=== PATIENT | female | born 1940 | race Caucasian/White ===

== ENCOUNTER 2020-05-22 10:52 | Outpatient (CLI) | payer MEDICARE | END 2020-05-22 23:59 | disposition home or self-care (01) | LOC: CFH 10:52 | PROVIDERS: ATTEND Orthopaedic Surgery | DX: S42.331D Displaced oblique fracture of shaft of humerus, right arm, subsequent encounter for fracture with routine healing (principal); X58.XXXD Exposure to other specified factors, subsequent encounter ==

== ENCOUNTER 2020-08-13 08:43 | Emergency (ER) | payer MEDICARE ==
[~2020-08-13] VITALS: Ht 160 cm; Wt 49.0 kg
--- NOTE | 2020-08-13 09:20 | NUR ---
GLF ABOUT 0800 TODAY. PT A&OX4, RESP EVEN & UNLABORED, SPEECH CLEAR. STATES SHE TRIPPED UP A CEMENT STEP AND ROLLED ONTO BACK. HIT HEAD, DENIES LOC. HEMATOMA TO RT LATERAL FOREHEAD, SKIN TEAR RT LAT ELBOW, ABRASION TO RT POSTERIOR ELBOW, SMALL SCABBED WOUND TO RT LAT WRIST, PAIN TO RT LAT HAND AND 5TH FINGER, PAIN W/ MOVEMENT OF HAND & FINGERS, ABLE TO MAKE A FIST, ABRASIONS TO BOTH KNEES, + ROM BILAT HIPS AND KNEES. HX: DECREASED HEARING LT EAR; NO HEARING AID.
[2020-08-13] MEDS ORDERED: ACETAMINOPHEN 325 MG TABLET PO ONE (09:30)
[2020-08-13] MEDS ORDERED: OMEP20TA62 PO (09:44)
[2020-08-13] MEDS ORDERED: CHOLESTEROL (09:44)
[2020-08-13] MEDS ORDERED: FLUO40CA9 PO (09:44)
[2020-08-13] MEDS ORDERED: CALCIUM IM (09:44)
[2020-08-13] MEDS ORDERED: CELE100C PO (09:44)
--- NOTE | 2020-08-13 09:45 | NUR ---
TO RADIOLOGY PER TYESHA
[2020-08-13] MEDS ORDERED: ACETAMINOPHEN 325 MG TABLET ONE (09:47)
--- NOTE | 2020-08-13 09:55 | NUR ---
PT RETURNED FROM CT. TYLENOL GIVEN PER EMAR. PT AWAITING XR'S. SIDE RAILS UP X2, CALL LIGHT W/IN REACH, DAUGHTER IN ROOM.
--- NOTE | 2020-08-13 10:11 | NUR ---
TO XR PER TYESHA
[2020-08-13 11:47] VITALS: BP 155/53
--- NOTE | 2020-08-13 11:47 | NUR ---
PT AMBULATORY TO AND fROM THORNTON BR W/OUT INCIDENT; GAIT STEADY. ACCOMPANIED BY DAUGHTER.
--- NOTE | 2020-08-13 11:49 | NUR ---
PT WAITING RESIDENCE LEASING AGENT WOUND CARE.
[2020-08-13] MEDS ORDERED: NEOSPORIN OINT. PKT 1 PACKET ONE (11:50)
--- NOTE | 2020-08-13 12:12 | NUR ---
DISTANCE LEARNING UNIT LEADER AT FOR WOUND CARE. WRITTEN DC INSTRUCTIONS DISCUSSED W/ PT AND HER DAUGHTER; UNDERSTANDING VERBALIZED BY BOTH.
--- NOTE | 2020-08-13 12:15 | NUR ---
PT AMBULATORY TO DC DESK W/ STEADY GAIT, ACCOMPANIED BY DAUGHTER.
== END 2020-08-13 12:16 | disposition home or self-care (01) ==
LOC: ED 12:10
DX: S63.521A Sprain of radiocarpal joint of right wrist, initial encounter (principal); S33.5XXA Sprain of ligaments of lumbar spine, initial encounter; S00.83XA Contusion of other part of head, initial encounter; S80.02XA Contusion of left knee, initial encounter; S80.01XA Contusion of right knee, initial encounter; S00.82XA Blister (nonthermal) of other part of head, initial encounter; S09.90XA Unspecified injury of head, initial encounter; I10 Essential (primary) hypertension; E11.9 Type 2 diabetes mellitus without complications; W18.30XA Fall on same level, unspecified, initial encounter; Y93.89 Activity, other specified; Y92.009 Unspecified place in unspecified non-institutional (private) residence as the place of occurrence of the external cause; Y99.8 Other external cause status
CPT/HCPCS: 70450; 99284